=== PATIENT | male | born 1965 | race Caucasian/White ===

== ENCOUNTER → 2016-12-11 | Outpatient (CLI) | payer OTHER | LOC: FIMAGING 09:36 | PROVIDERS: ATTEND Specialist | DX: N28.1 Cyst of kidney, acquired (principal); K57.90 Diverticulosis of intestine, part unspecified, without perforation or abscess without bleeding; M25.851 Other specified joint disorders, right hip; M25.852 Other specified joint disorders, left hip ==

== ENCOUNTER → 2017-03-04 | Outpatient (CLI) | payer OTHER | LOC: FIMAGING 10:01 | PROVIDERS: ATTEND Specialist | DX: Z87.442 Personal history of urinary calculi (principal) ==

== ENCOUNTER 2017-11-03 05:58 | Day surgery (SDC) | payer OTHER ==
--- NOTE | 2017-11-02 17:19 | PDGENHP ---
History & Physical Chief Complaint: left clavicle fracture History of Present Illness: 52 yo male, presenting today for left clavicle fracture ORIF by dr. marshall Pertinent Past, Social, Family History: denies PMH. denies pertinent FH. ALLERGIES: nkda Relevant Physical Exam: LUE: no tenting, no erythema/edema, appropriately ttp over fracture site, no shoulder rom assessed, grossly nvid
[2017-11-03] MEDS ORDERED: ceFAZolin 2 GM/SWFI 2 GM/20 ML SYR IVP ONE (06:05)
[2017-11-03] MEDS ORDERED: LR 1,000 ML IV SCH (06:05)
[2017-11-03] MEDS ORDERED: LR 1,000 ML IV ONE (06:08)
[2017-11-03] MEDS ORDERED: LIDOCAINE 1% 2 ML INJ ID PRN (06:08)
[2017-11-03] MEDS ORDERED: fentaNYL 100 MCG/2 ML INJ ONE ×2 (06:25→09:19)
[2017-11-03] MEDS: fentaNYL 100 MCG/2 ML INJ IVP PRN ×2 (06:28→10:07)
--- NOTE | 2017-11-03 06:55 | PDANEPAE ---
ANE History of Present Illness L clavicle ORIF ANE Past Medical History - Cardiovascular History Hx Hypertension: No Hx Arrhythmias: No Hx Chest Pain: No Hx Coronary Artery / Peripheral Vascular Disease: No Hx CHF / Valvular Disease: No Hx Palpitations: No - Pulmonary History Hx COPD: No Hx Asthma/Reactive Airway Disease: Yes Hx Recent Upper Respiratory Infection: No Hx Oxygen in Use at Home: No Hx Sleep Apnea: No Sleep Apnea Screening Result - Last Documented: Negative Pulmonary History Comment: asthma. uses brio inhaler. pro air - Neurologic History Hx Cerebrovascular Accident: No Hx Seizures: No Hx Dementia: No - Endocrine History Hx Diabetes: No - Renal History Hx Renal Disorders: Yes Renal History Comment: hx of 2 kidney stones - Liver History Hx Hepatic Disorders: No - Neurological & Psychiatric Hx Hx Neurological and Psychiatric Disorders: Yes Neurological / Psychiatric History Comment: neuropathy in feet - Cancer History Hx Cancer: No - Congenital Disorder History Hx Congenital Disorders: No - GI History Hx Gastrointestinal Disorders: Yes Gastrointestinal History Comment: IBS - Other Health History Other Health History: SPINAL STENOSIS. LEFT ARMPIT RASH - Chronic Pain History Chronic Pain: No - Surgical History Prior Surgeries: colonoscopy ANE Review of Systems Review of systems is: negative Review of Systems: - Exercise capacity METS (RN): 6 METS ANE Patient History - Allergies Allergies/Adverse Reactions: No Known Allergies Allergy (Verified 11/02/17 17:54) - Home Medications Home medications: home medication list seen and reviewed Home Medications: Brio 11/02/17 [Last Taken 11/03/17] LORazepam 11/02/17 [Last Taken Unknown] Nasonex 11/02/17 [Last Taken Unknown] Pro Air 11/02/17 [Last Taken Unknown] Tramadol HCl 11/02/17 [Last Taken Unknown] Zofran 11/02/17 [Last Taken Unknown] - NPO status NPO Status: no food or drink >8 hours NPO Since - Liquids (Date): 11/02/17 NPO Since - Solids (Date): 11/02/17 - Anes Hx Anes Hx: no prior problems - Smoking Hx Smoking Status: Never smoked - Family Anes Hx Family Anes Hx: none Family Hx Anesthesia Complications: none ANE Labs/Vital Signs - Vital Signs Blood Pressure: 129/96 Heart Rate: 62 Respiratory Rate: 14 O2 Sat (%): 94 Height: 187.96 cm Weight: 97.522 kg ANE Physical Exam - Airway Neck exam: FROM Mallampati Score: Class 1 Mouth exam: normal dental/mouth exam - Pulmonary Pulmonary: no respiratory distress - Cardiovascular Cardiovascular: regular rate and rhythym - ASA Status ASA Status: II ANE Anesthesia Plan Anesthesia Plan: general endotracheal anesthesia
[2017-11-03] MEDS ORDERED: MIDAZOLAM 2 MG/2 ML VIAL IVP ONE (07:03)
[2017-11-03] MEDS ORDERED: ROPIVACAINE HCL 20 MG/10 ML INJ EP ONE ×2 (07:13→08:54)
[2017-11-03] MEDS ORDERED: PROPOFOL 200 MG/20 ML VIAL ONE (07:17)
[2017-11-03] MEDS ORDERED: fentaNYL 250 MCG/5 ML INJ ONE (07:17)
[2017-11-03] MEDS ORDERED: ROCURONIUM 50 MG/5 ML VIAL ONE (07:17)
[2017-11-03] MEDS ORDERED: ONDANSETRON 4 MG/2 ML VIAL ONE (07:17)
[2017-11-03] MEDS ORDERED: DEXAMETHASONE 4 MG/ML VIAL ONE (07:17)
[2017-11-03] MEDS ORDERED: LIDOCAINE 2% 100 MG/5 ML SYR ONE (07:17)
[2017-11-03] MEDS ORDERED: MEPERIDINE 25 MG/ML SYR IVP PRN (07:27)
[2017-11-03] MEDS ORDERED: PROMETHAZINE HCL 25 MG/ML INJ IVP PRN (07:27)
[2017-11-03] MEDS ORDERED: ACETAMINOPHEN 500 MG TAB PO PRN (07:27)
[2017-11-03] MEDS ORDERED: ONDANSETRON 4 MG/2 ML VIAL IVP PRN ×2 (07:27→09:14)
[2017-11-03] MEDS ORDERED: OXYCODONE/APAP 5/325 TAB PO PRN ×2 (07:27→09:14)
[2017-11-03] MEDS ORDERED: ALBUTEROL 3 ML DEYVIAL IH PRN (07:27)
[2017-11-03] MEDS ORDERED: HYDROmorphONE/DILAUDID 1 MG/ML INJ IVP PRN (07:27)
[2017-11-03] MEDS ORDERED: HYDROCODONE/APAP 5/325 TAB PO PRN ×2 (07:27→09:14)
[2017-11-03] MEDS ORDERED: DEXAMETHASONE 4 MG/ML VIAL IVP PRN (07:27)
[2017-11-03] MEDS ORDERED: NALOXONE HCL 0.4 MG/ML INJ IVP PRN (07:27)
[2017-11-03] MEDS ORDERED: fentaNYL 100 MCG/2 ML INJ IVP PRN (07:27)
--- NOTE | 2017-11-03 07:27 | POSTANESTH ---
Post Anesthetic Evaluation Cardiovascular Status: Normal, Stable, Similar to Pre-Op Cond Respiratory Status: Normal, Stable, Similar to Pre-op Cond. Level of Consciousness/Mental Status: Can Participate in Eval, Mildly Sleepy, Arousable Pain Control: Adequate, Prn Tx Ordered Nausea/Vomiting Control: Adequate, Prn Tx Ordered Complications Possibly Related to Anesthesia: None Noted
[2017-11-03] MEDS ORDERED: ROPIVACAINE HCL 150 MG/30 ML INJ ONE (08:53)
[2017-11-03] MEDS ORDERED: LABETALOL HCL 5 MG/ML 20 ML MDV IVP PRN (09:14)
[2017-11-03] MEDS ORDERED: KETOROLAC 15 MG/1 ML SDV IVP ONE (09:14)
[2017-11-03] MEDS ORDERED: ACETAMINOPHEN 325 MG TAB PO PRN (09:14)
[2017-11-03 09:37] VITALS: TEMP 98.1
[2017-11-03 11:52] VITALS: BP 133/85; PULSE 75; RESP 18; O2SAT 93
--- NOTE | 2017-11-03 17:03 | GOP ---
[f rep st] OPERATIVE REPORT DATE OF OPERATION: 11/03/2017 SURGEON: Laura Machuca MD PREOPERATIVE DIAGNOSIS: Displaced distal clavicle flat fracture, left. POSTOPERATIVE DIAGNOSIS: Displaced distal clavicle flat fracture, left. PROCEDURE PERFORMED: Open reduction/internal fixation of left clavicle fracture. FINDINGS: ESTIMATED BLOOD LOSS: Minimal. INDICATIONS: Briefly, this 52-year-old male had a slow mechanism ski injury, fell onto his left shou lder. 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 Had a prior left shoulder Kemar-Stack procedure for instability. His left shoulder has been stable ever since the procedure back in the . X-rays were taken in the trauma bay that showed displaced clavicle fracture. The AC joint look ed relatively intact with a good distal piece in good approximation to the acromion. Patient present s for operative fixation of unstable distal clavicle fracture. DESCRIPTION OF PROCEDURE: Patient identified in the preoperative holding area. Consent, laterality, and preoperative antibiotics were confirmed to be delivered. All questions were answered. Left saray ulder was identified. was available for questions and answers. Patient was brought into the op erating room. Semi lazy beach-chair position with head of bed about 30 degrees. Left shoulder ident ified. Left upper extremity prepped and draped in usual sterile fashion after general anesthesia. S urgical site confirmation. Surgical time-out performed. The incision was made directly over the clavicle centered on the clavicle fracture with the distal li mbs over the AC joint, so we had accurate visualization of the AC joint. Sharp dissection down to beatriz ne. The inferior fracture fragment was identified after doing a periosteal sleeve anteriorly. We di d a pointed reduction clamp, placed 2 screws [id number] direction for lag technique. We th en chose a 6-hole distal clavicle locking plate. We placed 2 compression screws on either side of th e fractures and then filled the remaining screws with locking screws. We had nice approximation. Fl uoroscopic views in multiple AP planes show an anatomic reduction with at least 8 cortices in the dis avery clavicle piece and 6 cortices in the proximal piece. The wound was copiously washed out with 500 mL warm normal saline. 2-0 PDS for deep muscular closure , 3-0 Monocryl for subcutaneous closure, and 3-0 Prolene for skin closure. 20 mL of 0.2% ropivacaine were injected throughout the incision. 3-0 Prolene closure with an escape stitch. Mastisol, Steri- Strips, Xeroform, and a waterproof dressing applied. IMPLANTS USED: Synthes pre-contoured distal clavicle locking plate. COMPLICATIONS: None. TOTAL SURGICAL TIME: 1 hour DISPOSITION: Extubated to the PACU in stable condition. /[id number]/MODL
== END 2017-11-03 11:50 | disposition home or self-care (01) ==
LOC: FSGY 05:58
PROVIDERS: ATTEND Orthopaedic Surgery
PROC: 0PSB04Z Reposition Left Clavicle with Internal Fixation Device, Open Approach (ICD-10-PCS; principal; 2017-11-03 07:15)
DX: S42.032A Displaced fracture of lateral end of left clavicle, initial encounter for closed fracture (principal); W19.XXXA Unspecified fall, initial encounter; Y93.23 Activity, snow (alpine) (downhill) skiing, snowboarding, sledding, tobogganing and snow tubing
CPT/HCPCS: C1713; J0690; J1100; J2001; J2250; J2405; J2704; J2795; J3010

== ENCOUNTER 2018-01-22 15:44 | Emergency (ER) | payer OTHER ==
--- NOTE | 2018-01-22 15:54 | EDPHY ---
HPI/HX/ROS/PE/MDM Narrative: CHIEF COMPLAINT: Substernal chest tightness HPI: The patient is a 52 y/o male with a history of asthma and 11 weeks s/p left clavicular repair surgery with Dr. Machuca, orthopedic surgeon, complaining of substernal chest tightness, sudden onset 03:30, 12.5 hours ago. After the chest pain started this morning he was able to sleep, but it was still present when he woke up at 08:30. Today while bending over, the chest tightness would become exacerbated but relieved when standing up. He did have a normal cardiac stress test several years ago.. Denies familial history of an AL at a young age. [address] Machuca prescribed him Pennsaid for mastoid and neck pain, which caused the patient to have a cough associated with sputum. The patient stopped Pennsaid and the cough has improved. REVIEW OF SYSTEMS: Aside from elements discussed in the HPI, a comprehensive 10-point review of systems was reviewed and is negative. PMH: Asthma, left clavicular repair surgery, torn left pectoralis muscle SOCIAL HISTORY: at bedside, employed at the [employer], lives in [place] PHYSICAL EXAM: General: Patient is alert, in no acute distress. ENT: Eyes are normal to inspection. ENT inspection normal. Neck: Well-healed scar over left clavicle. Full range of motion. Respiratory: No respiratory distress. Breath sounds normal bilaterally. Cardiovascular: Regular rate and rhythm. Strong peripheral pulses. Normal cap refill. Abdomen: The abdomen is nontender to palpation. There are no peritoneal signs. There are normal bowel sounds. Back: Normal to inspection. No tenderness to palpation. Skin: Normal color. No rash. Warm and dry. Extremities: Normal appearance. Full range of motion. Neuro: Oriented x3. Normal motor function. Normal sensory function. ED Course: 1553: EKG was ordered and interpreted by myself. Please see [facility] system for official reading. 1554: Patient's chest x-ray is negative for acute findings. 1650: Reassessed patient and discussed mildly elevated d-dimer. Chest CT angiogram ordered. 1835: Spoke with Dr. De Jesus, radiologist; patient's chest CT angiogram is negative. 1838: Reassessed patient and discussed imaging findings. I have advised him to follow up with a epic radiant analyst in the next week. Strict return precautions provided; patient and his are comfortable with this plan. MDM: This patient presents with atypical chest pain, and has a negative troponin and ECG greater than 12 hours after symptoms began. His d-dimer was mildly elevated which prompted CTA, which is thankfully negative. His HEART score is very low. I offered him admission for observation and further testing but he would prefer to be discharged and follow-up with his doctor. I see no evidence for PE , ACS, PTX, PNA or TAD. - Data Points Imaging Results: Imaging Impressions Chest X-Ray 01/22/18 15:54 Impression: Chest negative for acute abnormality. Imaging: Discussed imaging studies w/ call worker Radiologist, I viewed and interpreted images myself Laboratory Results: Laboratory Results 01/22/18 15:50 01/22/18 15:50 01/22/18 01/22/18 01/22/18 16:00 15:50 15:50 WBC 12.79 10^3/uL H 10^3/uL (3.80-9.50) RBC 4.84 10^6/uL 10^6/uL (4.40-6.38) Hgb 15.1 g/dL g/dL (13.7-17.5) Hct 43.7 % % (40.0-51.0) MCV 90.3 fL fL (81.5-99.8) MCH 31.2 pg pg (27.9-34.1) MCHC 34.6 g/dL g/dL (32.4-36.7) RDW 12.9 % % (11.5-15.2) Plt Count 331 10^3/uL 10^3/uL (150-400) MPV 8.9 fL fL (8.7-11.7) Neut % (Auto) 75.5 % H % (39.3-74.2) Lymph % (Auto) 16.7 % % (15.0-45.0) [place] % (Auto) 5.6 % % (4.5-13.0) Eos % (Auto) 1.3 % % (0.6-7.6) Baso % (Auto) 0.5 % % (0.3-1.7) Nucleat RBC Rel Count 0.0 % % (0.0-0.2) Absolute Neuts (auto) 9.68 10^3/uL H 10^3/uL (1.70-6.50) Absolute Lymphs (auto) 2.13 10^3/uL 10^3/uL (1.00-3.00) Absolute Monos (auto) 0.71 10^3/uL 10^3/uL (0.30-0.80) Absolute Eos (auto) 0.16 10^3/uL 10^3/uL (0.03-0.40) Absolute Basos (auto) 0.06 10^3/uL 10^3/uL (0.02-0.10) Absolute Nucleated RBC 0.00 10^3/uL 10^3/uL (0-0.01) Immature Gran % 0.4 % % (0.0-1.1) Immature Gran # 0.05 10^3/uL 10^3/uL (0.00-0.10) D-Dimer 0.53 ug/mLFEU H ug/mLFEU (0.00-0.50) Sodium 140 mEq/L mEq/L (135-145) Potassium 4.7 mEq/L mEq/L (3.5-5.2) Chloride 108 mEq/L mEq/L (97-110) Carbon Dioxide 22 mEq/l mEq/l (22-31) Anion Gap 10 mEq/L mEq/L (8-16) BUN 16 mg/dL mg/dL (7-23) Creatinine 0.9 mg/dL mg/dL (0.7-1.3) Estimated GFR > 60 Glucose 97 mg/dL mg/dL (70-100) Calcium 9.6 mg/dL mg/dL (8.5-10.4) Troponin I < 0.012 ng/mL ng/mL (0.000-0.034) General Time Seen by Provider: 01/22/18 15:53 Initial Vital Signs: Initial Vital Signs Temperature (C) 36.9 C 01/22/18 15:45 Heart Rate 67 01/22/18 15:45 Respiratory Rate 18 01/22/18 15:45 Blood Pressure 154/85 H 01/22/18 15:45 O2 Sat (%) 97 01/22/18 15:45 O2 Delivery Mode Room Air Allergies/Adverse Reactions: No Known Allergies Allergy (Verified 01/22/18 15:45) Home Medications: Medication Instructions Recorded Brvenkat 11/02/17 LORazepam 11/02/17 Nasonex 11/02/17 Pro Air 11/02/17 Tramadol HCl 11/02/17 Zofran 11/02/17 Departure - Departure Disposition: Home, Routine, Self-Care Clinical Impression: Chest pain Condition: Good Instructions: Chest Pain (ED) Additional Instructions: Follow-up with your primary doctor within 72 hours. Return to the Emergency Department for fever, chest pain, shortness of breath, increasing pain or other worsening of condition. Follow up with a epic radiant analyst for further testing, as soon as possible, within one week. As we discussed, it is impossible to fully rule out heart disease as the cause of your chest pain in the emergency department. We would be happy to reevaluate you and observe you in the hospital at any time. Referrals: Jose Clemente MD [Medical Doctor] - As per Instructions Report Scribed for: Edu Huston Report Scribed by: Siria Raymundo Date of Report: 01/22/18 Time of Report: 15:54 Physician Review and Approval Statement: Portions of this note were transcribed by an ED scribe. I personally performed the history, physical exam, and medical decision making; and confirm the accuracy of the information in the transcribed note.
--- NOTE | 2018-01-22 15:55 | CPEKG ---
Heart Rate: 74 RR Interval: 811 P-R Interval: 164 QRSD Interval: 88 QT Interval: 376 QTC Interval: 418 P Needles: 76 QRS Needles: -4 T Wave Needles: 41 EKG Severity - NORMAL ECG - EKG Impression: SINUS RHYTHM Electronically Signed By: Timmy Sanchez 24-Jan-2018 13:41:40
[2018-01-22 16:10] LABS: PLATELET COUNT 331 10^3/uL (150-400)
[2018-01-22] MEDS ORDERED: IOPAMIDOL (ISOVUE 370) 100 ML BTL IV ONE (16:56)
[2018-01-22 18:12] VITALS: BP 114/79
== END 2018-01-22 18:49 | disposition home or self-care (01) ==
DX: R07.9 Chest pain, unspecified (principal); J45.909 Unspecified asthma, uncomplicated
CPT/HCPCS: Q9967

== ENCOUNTER → 2018-02-08 | Outpatient (CLI) | payer OTHER | LOC: FIMAGING 10:38 | PROVIDERS: ATTEND Orthopaedic Surgery | DX: S46.911A Strain of unspecified muscle, fascia and tendon at shoulder and upper arm level, right arm, initial encounter (principal) ==